=== PATIENT | male | born 1965 | race Caucasian/White ===

== ENCOUNTER 2018-02-12 16:06 | Emergency (ER) | payer BC ==
[~2018-02-12] VITALS: Ht 180.3 cm; Wt 91.4 kg
[2018-02-12 19:18] VITALS: BP 109/62
== END 2018-02-12 19:31 | disposition home or self-care (01) ==
LOC: EME 16:06
PROC: 0HQFXZZ Repair Right Hand Skin, External Approach (ICD-10-PCS; principal; 2018-02-12)
DX: S61.011A Laceration without foreign body of right thumb without damage to nail, initial encounter (principal); W29.8XXA Contact with other powered hand tools and household machinery, initial encounter; F17.200 Nicotine dependence, unspecified, uncomplicated
CPT/HCPCS: 73140; 99281; 99284